=== PATIENT | female | born 1995 | race African-American/Black ===

== ENCOUNTER 2024-10-19 19:19 | Emergency (ER) | payer SELFPAY ==
--- OUTSIDE RECORDS SUMMARY | 2024-10-19 19:22 | XMS REPORT | Continuity of Care Document ---
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 Role Phone JELENA Attending Clinician Unavailable Villa Attending Clinician Unavailable MELINDA RICH Attending Clinician Unavailable GRIS STALLINGS Attending Clinician Unavailable Gabriel CASTRO Attending Clinician Unavailable JELENA Admitting Clinician Unavailable Villa Admitting Clinician Unavailable Payers Payer Name Policy Type Policy Number Effective Date Expirati on Date Source [employer] (POS) [id number] 2017 00:00:00 [employer] - NAP [id number] 2000 00:00:00 Problems Condition Name Condition Details Condition Category Status Onset Date Resolution Date Last Treatment Date Treating Clinician Comments Source Fibrocysti c disease of breast Fibrocysti c Disease of Breast Problem Active 10-06 00:00: 00 [facility] Contracept ion education Contracept ion Education Problem Active 10-06 00:00: 00 [facility] Contracept ion using injectable contracept mery medication Contracept ion Using Injectable Contracept mery Medication Problem Active 10-06 00:00: 00 [facility] Education about sexually transmitte d disease prevention Education about Sexually Transmitte d Disease Prevention Problem Active 10-06 00:00: 00 [facility] Gynecologi c examinatio n Gynecologi c Examinatio n Problem Active 10-06 00:00: 00 [facility] Acute gastroente ritis Acute Gastroente ritis Problem Active [facility] Irregular periods Irregular Periods Problem Active [facility] Left lower quadrant pain Left Lower Quadrant Pain Problem Active [facility] Social History Smoking Status Start Date Stop Date Source Never Smoker [facility] Medications Ordered Medication Name Filled Medication Name Start Date Stop Date Current Medication? Ordering Clinician Indication Dosage Frequency Signature (SIG) Comments Components Source medroxyprog esterone 150 mg/mL intramuscul ar suspensionI nject 1 mL every 3 months by intramuscul ar route. medroxyprog esterone 150 mg/mL intramuscul ar suspensionI nject 1 mL every 3 months by intramuscul ar route. 10-06 14:29: 09 No medroxypro gesterone 150 mg/mL intramuscu lar suspension Inject 1 mL every 3 months by intramuscu lar route. [facility] cyclobenzap rine 10 mg tablet Take 1 tablet twice a day by oral route. cyclobenzap rine 10 mg tablet Take 1 tablet twice a day by oral route. No cyclobenza shahid 10 mg tablet Take 1 tablet twice a day by oral route. [facility] ibuprofen 800 mg tablet Take 1 tablet twice a day by oral route. ibuprofen 800 mg tablet Take 1 tablet twice a day by oral route. No ibuprofen 800 mg tablet Take 1 tablet twice a day by oral route. [facility] medroxyprog esterone 150 mg/mL intramuscul ar syringe medroxyprog esterone 150 mg/mL intramuscul ar syringe No medroxypro gesterone 150 mg/mL intramuscu lar syringe [facility] Vital Signs Vital Name Observation Time Observation Value Comments S ource BP Diastolic 2019-10-07 00:00:00 81 mm[Hg] [facility] Height 2019-10-07 00:00:00 61 [in_i] [facility] BMI (Body Mass Index) 2019-10-07 00:00:00 36 kg/m2 [facility] BP Systolic 2019-10-07 00:00:00 125 mm[Hg] [facility] Body Weight 2019-10-07 00:00:00 190.4 [lb_av] [facility] BP Diastolic 2019-08-04 00:00:00 80 mm[Hg] [facility] Height 2019-08-04 00:00:00 61 [in_i] [facility] BMI (Body Mass Index) 2019-08-04 00:00:00 36.9 kg/m2 [facility] BP Systolic 2019-08-04 00:00:00 112 mm[Hg] [facility] Body Weight 2019-08-04 00:00:00 3121.6 [oz_av] [facility] Plan of Care Planned Activity Planned Date Details Comments Source Diagnostic Test Pending 2019-10-07 00:00:00 urinalysis, dipstick [code = urinalysis, dipstick] [facility] Diagnostic Test Pending 2019-10-07 00:00:00 test, urine [code = test, urine] [facility] Diagnostic Test Pending 2019-10-07 00:00:00 pap, LB + reflex to HR HPV if ASC-U [code = pap, LB + reflex to HR HPV if ASC-U] [facility] Encounters Start Date/Time End Date/Time Encounter Type Admission Type Attending [facility] Care Department Encounter ID Source 2021-09-20 10:13:00 2021-09-20 10:13:00 Outpatient LISTER_MELI SSA [facility] [id number] [facility] 2020-07-27 12:07:00 2020-07-27 12:07:00 Outpatient [facility] [id number] [facility] 2020-04-14 02:26:00 2020-04-14 02:26:00 Outpatient [facility] [id number] [facility] 2019-12-30 10:03:00 2019-12-30 10:03:00 Outpatient [facility]G [id number] [facility] 2019-10-07 08:01:00 2019-10-07 08:01:00 Outpatient [facility]G [id number] [facility] 2019-10-07 00:00:00 2019-10-07 00:00:00 Adela Culver, NP: [address] [facility] [address], [place] [address] , Ph. [phone] [facility] [id number] [facility] 2019-09-02 12:00:00 2019-09-02 12:00:00 [place] [id number] [facility] 2019-09-02 12:00:00 2019-09-02 12:00:00 Outpatient [facility] MMG [id number] [facility] 2019-08-04 06:31:00 2019-08-04 06:31:00 Outpatient [facility] MMG [id number] [facility] 2019-08-04 00:00:00 2019-08-04 00:00:00 Becca Driver, SPECIAL NEEDS LIBRARIAN: [address] [facility] [address], [place] [address] , Ph. MMG [facility] [id number] [facility] 2019-07-21 11:57:00 2019-07-21 11:57:00 Outpatient Shield [facility] [id number] [facility] 2018-10-22 11:27:00 2018-10-22 11:27:00 Outpatient MELINDA ASHTON [facility] [id number] [facility] 2017-10-23 10:07:00 2017-10-23 10:07:00 Outpatient GRIS SKELTON [facility] [id number] [facility] 2012-07-05 17:20:00 2012-07-05 17:20:00 Outpatient Gabriel WHITE [facility] [id number] [facility] 2009-07-15 13:16:00 2009-07-15 13:16:00 Outpatient Gabriel WHITE [facility] [id number] [facility] Results Test Description Test Time Test Comments Results Result Co mments Source [facility]
--- NOTE | 2024-10-19 21:00 | RAD REPORT ---
EXAM: XR Hand Right 3 View HISTORY: [facility] MAIN PAIN Bed Name: IW5 COMPARISON: None TECHNIQUE: 3 radiographic views of the RIGHT hand submitted. FINDINGS: No evidence of acute fracture or dislocation. Corticated osseous density along the lateral margin of the intercarpal , Favored to represent an accessory ossicle. Joint alignment is maintained. No soft tissue swelling i s seen.. No significant degenerative changes are present. IMPRESSION: No significant bone or joint abnormality.
--- NOTE | 2024-10-19 21:02 | ER ---
Nurse's Notes [facility] Name: Darleen Zimmer Age: 29 yrs Sex: Female : 1995 Arrival Date: 10/19/2024 Time: 19:19 Bed IW1 Private MD: Diagnosis: Pain in right hand Presentation: 10/19 19:45 Chief complaint: Patient states: started having pain to right hand/wrist that started me1 Sunday and has worsened. Pain today is 6/10. Denies injury. Coronavirus screen: Vaccine status: Patient reports receiving the 2nd dose of the covid vaccine. Ebola Screen: No symptoms or risks identified at this time. Initial Sepsis Screen: Does the patient meet any 2 criteria? No. Patient's initial sepsis screen is negative. Does the patient have a suspected source of infection? No. Patient's initial sepsis screen is negative. Risk Assessment: Do you want to hurt yourself or someone else? Patient reports no desire to harm self or others. Onset of symptoms was October 17, 2024. 19:45 Method Of Arrival: Ambulatory [facility] 19:45 Acuity: TIFFANIE 4 me1 Triage Assessment: 19:47 General: Appears uncomfortable, obese, well groomed, well developed, Behavior is calm, me1 cooperative, appropriate for age. Pain: Complains of pain in lateral aspect of right hand Pain does not radiate. Pain currently is 6 out of 10 on a pain scale. Quality of pain is described as aching, Pain began 2-3 days ago. Is continuous. 21:10 EENT: No signs and/or symptoms were reported regarding the EENT system. Neuro: Level of me1 Consciousness is awake, alert, obeys commands, Oriented to person, place, time, situation, Appropriate for age. Cardiovascular: Patient's skin is warm and dry. Respiratory: Airway is patent Respiratory effort is even, unlabored. GI: No signs and/or symptoms were reported involving the gastrointestinal system. : No signs and/or symptoms were reported regarding the genitourinary system. Derm: Skin is intact, is healthy with good turgor, Skin is pink, warm \T\ dry. Musculoskeletal: Reports pain in lateral aspect of right hand. 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 - Infectious Disease History:: Denies. - Social history:: Smoking status: Patient denies any tobacco usage or history of. Screenin:12 [facility] ED Fall Risk Assessment (Adult) History of falling in the last 3 months, me1 including since admission No falls in past 3 months (0 pts) Confusion or Disorientation No (0 pts) Intoxicated or Sedated No (0 pts) Impaired Gait No (0 pts) Mobility Assist Device Used No (0 pt) Altered Elimination No (0 pt) Score/Fall Risk Level 0 - 2 = Low Risk Maintained a safe environment, Provided non-skid footwear, Hourly rounding (assess needs \T\ fall precautionary measures) done. Abuse screen: Denies threats or abuse. Nutritional screening: No deficits noted. Tuberculosis screening: No symptoms or risk factors identified. Assessment: 21:12 General: See triage assessment. me1 Vital Signs: 19:45 BP 128 / 87; Pulse 97; Resp 17; Temp 98.4; Pulse Ox 100% ; Weight 81.65 kg; Height 5 me1 ft. 1 in. ; Pain 6/10; 19:45 Body Mass Index 34.01 (81.65 kg, 154.94 cm) me1 19:45 Pain Scale: Adult me1 ED Course: 19:22 Patient arrived in ED. [id number] 19:25 Yazmin Aleman PA-C is PHCP. sb4 19:25 Mahin Willard MD is Attending Physician. sb4 19:47 Triage completed. me1 19:47 Arm band placed on Patient placed in waiting room. me1 20:27 Hand Right 3 View XRAY In Process Unspecified. EDMS 21:12 Patient has correct armband on for positive identification. Provided Education on: POC. me1 Verbalized understanding.. 21:12 No provider procedures requiring assistance completed. Patient did not have IV access me1 during this emergency room visit. Administered Medications: No medications were administered Medication: 21:12 VIS not applicable for this client. me1 Outcome: 21:02 Discharge ordered by . sb4 21:43 Discharged to home ambulatory, me1 21:43 Condition: stable 21:43 Discharge instructions given to patient, Instructed on discharge instructions, follow up and referral plans. medication usage, Demonstrated understanding of instructions, follow-up care, medications, Prescriptions given X 1, 21:43 Patient left the ED. me1 Signatures: Dispatcher [employer] ED Cristal Betancur [email or web address] Yazmin Aleman PA-C PA-C sb4 Breanne Tripathi RN RN me1 Corrections: (The following items were deleted from the chart) 21:11 19:47 Pain: Complains of pain in lateral aspect of right hand Pain does not radiate. me1 Pain currently is 6 out of 10 on a pain scale. Quality of pain is described as aching, Pain began 2-3 days ago. Is continuous, me1
--- NOTE | 2024-10-19 21:02 | EDPHYS ---
Physician Documentation [facility] Name: Darleen Zimmer Age: 29 yrs Sex: Female : 1995 Arrival Date: 10/19/2024 Time: 19:19 Bed IW1 Private MD: ED Physician Mahin Willard HPI: 10/19 19:47 This 29 yrs old Female presents to ER via Ambulatory with complaints of Hand Pain. sb4 19:47 The patient or guardian reports decreased range of motion, pain. The complaints affect sb4 the lateral aspect of right hand. Context: resulted from an unknown cause. Onset: The symptoms/episode began/occurred 2 day(s) ago. woke up with right hand hurting 2 days ago. has taken ibuprofen once and tried icing it, pian is getting worse. denies injury. 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 - Infectious Disease History:: Denies. - Social history:: Smoking status: Patient denies any tobacco usage or history of. ROS: 19:47 Constitutional: Negative for fever, chills, and weight loss, sb4 19:47 MS/extremity: Positive for pain, of the right hand, 19:47 All other systems are negative, Exam: 21:18 Constitutional: This is a well developed, well nourished patient who is awake, alert, sb4 and in no acute distress. Head/Face: Normocephalic, atraumatic. Eyes: Extra-ocular motions intact. Periorbital areas with no swelling, redness, or edema. ENT: Mucous membranes moist. Respiratory: No increased work of breathing, no retractions or nasal flaring. Skin: Warm, dry with normal turgor. Normal color with no rashes, no lesions, and no evidence of cellulitis. 21:18 Musculoskeletal/extremity: pain with palpation scaphoid region. no swelling or redness noted. wrist full ROM. pain with ROM of thumb. Vital Signs: 19:45 BP 128 / 87; Pulse 97; Resp 17; Temp 98.4; Pulse Ox 100% ; Weight 81.65 kg; Height 5 me1 ft. 1 in. ; Pain 6/10; 19:45 Body Mass Index 34.01 (81.65 kg, 154.94 cm) me1 19:45 Pain Scale: Adult me1 MDM: 19:34 Medical Screening Exam initiated sb4 21:18 Differential diagnosis: closed fracture, contusion, abrasion, tendonitis. Data sb4 reviewed: vital signs, nurses notes, radiologic studies, and as a result, I will discharge patient. Counseling: I had a detailed discussion with the patient and/or guardian regarding the historical points, exam findings, and any diagnostic results supporting the discharge/admit diagnosis, radiology results, the need for outpatient follow up, for definitive care, to return to the emergency department if symptoms worsen or persist or if there are any questions or concerns that arise at home. 10/19 19:46 Order name: Hand Right 3 View XRAY; Complete Time: 21:00 sb4 Administered Medications: No medications were administered Disposition: 10/20 20:03 Co-signature as Attending Physician, Mahin Willard MD I agree with the assessment sp4 and plan of care. I reviewed the patient's care provided by the Advanced Practice Provider and agree with the diagnosis and treatment plan. Disposition Summary: 10/19/24 21:02 Discharge Ordered Notes: Location: Home sb4 Problem: an ongoing problem sb4 Symptoms: are unchanged sb4 Condition: Stable sb4 Diagnosis - Pain in right hand sb4 Followup: sb4 - With: Private Physician - When: 1 week - Reason: Recheck today's complaints, Re-evaluation by your physician Discharge Instructions: - Discharge Summary Sheet sb4 - Musculoskeletal Pain sb4 - Pain Without a Known Cause sb4 Forms: - Patient Portal Instructions sb4 - Leadership Thank You Letter sb4 Prescriptions: - Cyclobenzaprine 10 mg Oral Tablet - take 1 tablet ORAL route every 8 hours As needed; 30 tablet; Refills: 0, sb4 Product Selection Permitted Signatures: Dispatcher [employer] Yazmin Stinson PA-C PA-C sb4 Mahin Willard MD MD sp4 Breanne Tripathi RN RN me1 Corrections: (The following items were deleted from the chart) 10/19 19:46 19:46 Hand Right 3 View+[email or web address] ordered. EDMS EDMS
[2024-10-19 21:48] VITALS: BP 128/87; TEMP 98.4; O2SAT 100
== END 2024-10-19 21:43 | disposition home or self-care (01) ==
LOC: ER 19:19
DX: M79.641 Pain in right hand (principal)
CPT/HCPCS: 99283